=== PATIENT | male | born 2000 ===

== ENCOUNTER 2018-01-21 17:40 | Emergency (ER) | payer OTHER ==
[~2018-01-21] VITALS: Ht 182.9 cm; Wt 106.6 kg
== END 2018-01-21 19:14 | disposition home or self-care (01) ==
LOC: ER 17:40
DX: S61.012A Laceration without foreign body of left thumb without damage to nail, initial encounter (principal); W26.8XXA Contact with other sharp object(s), not elsewhere classified, initial encounter
CPT/HCPCS: 12002; 73140; 90471; 90714; 99283